=== PATIENT | female | born 1995 ===

== ENCOUNTER 2024-01-14 16:00 | Outpatient (REF) | payer SELFPAY ==
[2024-01-14 17:32] LABS: MANUAL DIFF FLAG NO
[2024-01-14 17:50] LABS: Basophils Percent Auto 0.8 % (0-2); Eosinophils Absolute Auto 0.1 X10*3/uL (0.0-0.4); Eosinophils Percent Auto 1.6 % (0-4); Hematocrit 39.6 % (37.0-47.0); Imm Gran Abs Auto 0.01 X10*3/uL (0.00-0.03); Imm Gran Pct Auto 0.2 % (0.0-0.4); Lymphocytes Absolute Auto 2.4 X10*3/uL (1.2-4.9); Lymphocytes Percent Auto 48.2 % (20-40); Mean Corpuscular HGB Conc 35.4 g/dl (31.0-35.0); Mean Corpuscular Hemoglobin 28.9 pg (27.0-33.0); Mean Corpuscular Volume 81.8 fL (80.0-98.0); Mean Platelet Volume 10.5 fL (9.4-12.3); Monocytes Absolute Auto 0.3 X10*3/uL (0.1-1.2); Monocytes Percent Auto 5.5 % (2-11); Neutrophils Absolute Auto 2.1 x10*3/uL (2.0-8.3); Neutrophils Percent Auto 43.7 % (45-73); Platelet Count 262 X10*3/uL (160-400); Red Blood Count 4.84 X10*6/uL (4.20-5.50); Red Cell Distribution Width 11.7 % (11.0-16.0); White Blood Count 4.9 X10*3/uL (4.8-10.8)
[2024-01-14 18:13] LABS: Alanine Aminotransferase 15 U/L (0-31); Albumin Level 4.6 g/dL (3.5-5.0); Alkaline Phosphatase 29 U/L (39-117); Anion Gap 14 (12-20); Aspartate Amino Transferase 15 U/L (5-31); Bilirubin Total 0.4 mg/dL (0.0-1.0); Blood Urea Nitrogen 10 mg/dL (9-16); Calcium 9.9 mg/dL (8.4-10.2); Carbon Dioxide 24 mmol/L (22-29); Chloride 101 mmol/L (96-108); Cholesterol 207 mg/dL (<200); Estimated Glomerular Filt Rate > 60; Glucose Random 215 mg/dL (60-115); HDL Cholesterol 34 mg/dL (>40); Potassium 4.2 mmol/L (3.3-5.1); Sodium 135 mmol/L (135-145); Total Protein 8.2 g/dL (6.5-8.0); Triglycerides 618 mg/dL (<150)
[2024-01-14 18:30] LABS: Thyroid Stimulating Hormone 0.62 uIU/mL (0.32-4.0)
[2024-01-15 05:19] LABS: Estimated Average Glucose 223 mg/dL; Hemoglobin A1c % 9.4 % (<6.0)
== END 2024-01-14 16:01 | disposition home or self-care (01) ==
LOC: HO.HHCL 16:00
PROVIDERS: Visit Provider Nurse Practitioner Family
DX: Z00.00 Encounter for general adult medical examination without abnormal findings (principal); R00.0 Tachycardia, unspecified
CPT/HCPCS: 36415; 80053; 80061; 83036; 84443; 85025

== ENCOUNTER 2024-02-15 18:01 | Outpatient (REF) | payer OTHER, SELFPAY ==
[2024-02-19 11:03] LABS: C. trachomatis RNA TMA NOT DETECTED (NOT DETECTED); N. gonorrhoeae RNA TMA NOT DETECTED (NOT DETECTED); Trichomonas (NAAT) NOT DETECTED (NOT DETECTED)
[2024-03-11 12:01] LABS: Thin Prep Source Cervix
[2024-03-11 12:02] LABS: Previous Biopsy Date NONE GIVEN
[2024-03-11 12:03] LABS: Clinical Information NONE GIVEN
== END 2024-02-15 18:02 | disposition home or self-care (01) ==
LOC: HO.HHCLNP 18:01
PROVIDERS: Visit Provider Nurse Practitioner Family
DX: Z12.4 Encounter for screening for malignant neoplasm of cervix (principal)
CPT/HCPCS: 36415; 87491; 87591; 87661; 88175

== ENCOUNTER 2024-02-27 12:51 | Outpatient (REF) | payer OTHER, SELFPAY ==
--- NOTE | ~2024-02-27 | US_ITS ---
EXAMINATION: US PELVIS CLINICAL INFORMATION: Dysmenorrhea, menorrhagia, last menstrual period one week ago. COMPARISON: None available. TECHNIQUE: Ultrasound of the pelvis is performed using both transabdominal and transvaginal transducers along with Doppler. Transvaginal imaging is performed due to inadequate visualization transabdominally. Limited visualization due to bowel gas and body habitus. FINDINGS: The uterus is anteverted and measures 7.7 x 3.5 x 4.5 cm. Endometrial thickness is 8 mm. A 4 mm echogenic focus within the endometrial cavity may represent a polyp. Right ovary measures 4.7 x 3.1 x 3.7 cm, volume 28.2 mL. Right ovarian 2.0 x 1.9 x 1.8 cm hypoechoic area is very difficult to characterize due to severely limited visualization and may represent a complex cyst versus solid lesion. Left ovary measures 2.4 x 1.5 x 1.0 cm, volume 1.9 mL. Left ovary is poorly visualized. US/US pelvic and transvaginal IMPRESSION: 1. Endometrial thickness is 8 mm. A 4 mm echogenic focus within the endometrial cavity may represent a polyp. 2. Right ovarian 2.0 cm hypoechoic area is very difficult to characterize due to severely limited visualization and may represent a complex cyst versus solid lesion. 3. Gynecologic consultation recommended to determine further management including possible additional imaging with MRI, biopsy, and/or follow-up ultrasound in 6-8 weeks.
== END 2024-02-27 12:52 | disposition home or self-care (01) ==
LOC: HO.US 12:51
PROVIDERS: PCP Nurse Practitioner Family; Visit Provider Nurse Practitioner Family
DX: N94.6 Dysmenorrhea, unspecified (principal); N92.0 Excessive and frequent menstruation with regular cycle
CPT/HCPCS: 76830; 76856

== ENCOUNTER 2025-04-15 11:16 | Outpatient (REF) | payer OTHER, SELFPAY ==
--- NOTE | ~2025-04-15 | US_ITS ---
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 TECHNIQUE: Transabdominal and endovaginal real-time 2D rios-scale ultrasound was performed. FINDINGS: Uterus: The uterus is normal in size, measuring 7.0 x 4.0 x 4.1 cm. Myometrium has a normal echotexture. No fibroids are identified. Endometrium: The endometrial stripe measures 14 mm in thickness. Right ovary: The right ovary measures 2.6 x 2.7 x 2.1 cm. The right ovary is normal in size and echotexture. Left ovary: The left ovary measures 4.0 x 2.1 x 3.3 cm. There is a 1. 5 x 1.2 x 1.4 cm cyst demonstrating low level internal echoes. Pelvic fluid: none. US/US pelvic and transvaginal IMPRESSION: 1.5 x 1.2 x 1.4 cm left ovarian cyst demonstrating low level internal echoes. Follow-up is recommended to document resolution. Electronically signed by: Armani Barton MD 04/15/2025 12:09 PM EDT
== END 2025-04-15 11:17 | disposition home or self-care (01) ==
LOC: HO.US 11:16
PROVIDERS: PCP Nurse Practitioner Family; Visit Provider Nurse Practitioner Family
DX: R93.89 Abnormal findings on diagnostic imaging of other specified body structures (principal)
CPT/HCPCS: 76830; 76856

== ENCOUNTER → 2025-04-15 11:18 | Outpatient (BNV) | payer OTHER, SELFPAY | PROVIDERS: PCP Nurse Practitioner Family; Visit Provider Radiology Diagnostic Radiology | DX: N83.292 Other ovarian cyst, left side (principal) | CPT/HCPCS: 76830; 76856 ==

== ENCOUNTER 2025-05-13 13:24 | Outpatient (REF) | payer OTHER, SELFPAY ==
--- OUTSIDE RECORDS SUMMARY | 2025-05-13 14:00 | XMS_ITS | Encounter Summary ---
Author Organization [employer] Address [address] [place] [address] Care Team Providers Care Strategic Planning Director Name Role Phone Chelo Jacobs KASEY Primary Care Provider [phone] Encounter Details Date Type Department Care Team ([facility] st Contact Info) Description 05/13/2025 2:00 PM EDT Office Visit [facility] OPTOMETRY [address] [place], [place] [phone] Lynda Balderas, OD [address] [place] [address] Social History Tobacco Use Types Packs/Day Years Used Date Smoking Tobacco: Never Smokeless Tobacco: Never Alcohol Use Standard Drinks/Week Comments Never 0 (1 standard drink = 0.6 oz pur e alcohol) Depression Answer Date Recorded Patient Health Questionnaire-9 Score 15 01/27/2025 Patient Health Questionnaire-9 Score 15 01/27/2025 Last PHQ-9: Questionnaire Data Not on file 0 01/27/2025 Housing Stability Answer Date Recorded What is your housing situation today? I have [place] 01/14/[address] you li ve. Do you have problems with any of the following? Pests such as bugs, ants, or mice 01/14/2024 Food Insecurity Answer Date Recorded Within the past 12 months, y ou worried that your food would run out before you got money to buy more: Never True 01/14/2024 Within the past 12 months,th e food you bought just didn't last and you didn't have enough money to get more: Never True Transportation Answer Date Recorded In the past 12 months, has l ack of transportation kept you from medical appts, meetings, work or from getting things needed for daily living? No 01/14/2024 Utilities Answer Date Recorded In the past 12 months, has t he electric, gas, oil or water company threatened to shut off services in your home? No 01/14/2024 Depression Answer Date Recorded Patient Health Questionnaire-2 Score 4 01/27/2025 Internet Access Answer Date Recorded Internet Access Q1 No 03/31/2024 Internet Access Q2 I do not want or need it 08/2023 Comments Unknown Sex and Gender Information Value Date Recorded Sex Assigned at Female 01/31/2023 12:15 PM EDT Legal Sex Female 12:13 PM EDT Gender Identity Female 01/31/2023 12:15 PM EDT Sexual Orientation Straight 01/31/2023 12 :15 PM EDT documented as of this encounter Plan of Treatment Upcoming Encounters Date Type Department Care Team (Late st Contact Info) Description 05/26/2025 11:30 AM EDT Office Visit [facility] MEDICINE [address] [place] [phone] Chelo Jacobs NP [address] [place] [address] 06/11/2025 11:00 AM EST Medication Management [facility]INE [address] [place] [phone] Monika Baird, PharmD [address] [place] [phone] documented as of this encounter Visit Diagnoses Not on filedocumented in this encounter Additional Health Concerns Assessment Noted Time PHQ-9 Depression Total Score: 15 025 1:51 PM EDT documented as of this encounter Care Teams Strategic Planning Director Relationship Specialty Start Date End Date Chelo Jacobs NP [address] [place] [address] PCP - General Family Medicine 01/17/24 documented as of this encounter
[2025-05-13 16:43] LABS: Alanine Aminotransferase 9 U/L (0-31); Albumin Level 4.7 g/dL (3.5-5.0); Alkaline Phosphatase 31 U/L (39-117); Anion Gap 12 (12-20); Aspartate Amino Transferase 17 U/L (5-31); Blood Urea Nitrogen 14 mg/dL (9-16); Calcium 9.7 mg/dL (8.4-10.2); Carbon Dioxide 23 mmol/L (22-29); Chloride 105 mmol/L (96-108); Cholesterol 163 mg/dL (<200); Estimated Glomerular Filt Rate > 60; HDL Cholesterol 25 mg/dL (>40); Potassium 3.9 mmol/L (3.3-5.1); Sodium 136 mmol/L (135-145); Total Protein 7.5 g/dL (6.5-8.0); Triglycerides 167 mg/dL (<150)
--- OUTSIDE RECORDS SUMMARY | 2025-05-13 17:06 | XMS_ITS | Clinical Summary ---
Author Organization [facility] Address [address] [address] Phone Care Team Providers Care [employer] Captain Name Role Phone ArleneChelo Shira PARKS Primary Care Provider [phone] Allergies No known active allergies Medications cyclobenzaprine (FLEXERIL) 10 MG tablet Take 10 mg by mouth 3 (three) times a day as needed. 4 Active lisinopril (PRINIVIL,ZESTR IL) 20 MG tablet Take 20 mg by mouth daily. 4 Active metoprolol succinate (TOPROL-XL) 50 MG 24 hr tablet Take 50 mg by mouth daily. 4 Active naproxen (NAPROSYN) 500 MG tablet TAKE 1 TABLET BY MOUTH TWICE DAILY WITH BREAKFAST AND WITH DINNER 4 Active norethindrone (MICRONOR) 0.35 mg tablet Take 1 tablet (0.35 mg total) by mouth daily. Micronor 1 tab po QD 84 tablet 3 4 Active Active Problems Problem Noted Date Diagnosed Date Type 2 diabetes mellitus without complication Overview (04/16/2024): Hgb A1c was 9.4 in January 2024 Was not informed that this is dx of DM Assessment & Plan (04/16/2024 12:10 PM EDT): I reviewed that this is serious elevation in A1c and indicates DM; recommend she see her PCP [facility] Dysmenorrhea 04/16/2024 Overview (04/16/2024): Advise against the combined OCP given elevated triglycerides (also had HTN, on lisinopril) Assessment & Plan (04/16/2024 1:32 PM EDT): Sent Rx for norethindrone -only OCP to use instead of the combined OCP Elevated triglycerides with high cholesterol Overview (04/16/2024): Trig 600s with min elevated cholesterol Assessment & Plan (04/16/2024 12:09 PM EDT): Advise against EE-containing OCP with this level, oral combined OCPs will further increase Triglycerides, which are sig risk factor for CVDxz in women Recommend f/u with PCP Cyst of right ovary 04/16/2024 Overview (04/16/2024): 2 cm ? Cyst or solid on outside scan January 2024 Assessment & Plan (04/16/2024 12:08 PM EDT): Recommend repeat imaging in our office, f/u therafter as indicated Social History Tobacco Use Types Packs/Day Years Used Date Smoking Tobacco: Never Smokeless Tobacco: Never Tobacco Cessation:Counseling Given: Not Answered Alcohol Use Standard Drinks/Week Comments Yes 0 (1 standard drink = 0.6 oz pur e alcohol) Education Answer Date Recorded Are you interested in more education? Not on moises e 11/25/2022 Are you concerned about learning? Not on file 11/25/2022 No 11/25/2022 No 11/25/2022 Digital Access Answer Date Recorded No 12/26/2022 No 12/26/2022 Reliable internet access at home? Not on file 12/26/2022 Device with a working camera? Not on file Intimate Partner Violence Answer Date R ecorded Are you denied basic needs s uch as food, clothing, or medical care? No 01/04/2024 In the past 12 months have y ou been in a relationship with a person who hurts, threatens, or tries to control you? No 01/04/2024 Are you denied basic needs s uch as food, clothing, or medical care? No 01/04/2024 In the past 12 months have y ou been in a relationship with a person who hurts, threatens, or tries to control you? No 01/04/2024 Comments No Sex and Gender Information Value Date Recorded Sex Assigned at Female 01/04/2024 10:51 PM EDT Legal Sex Female 2:19 PM EDT Gender Identity Female 01/04/2024 10:51 PM EDT Sexual Orientation Don't know 01/04/2024 10 :51 PM EDT Last Filed Vital Signs Vital Sign Reading Time Taken Comments Blood Pressure 124/80 04/16/2024 11:18 AM EDT Pulse 98 01/05/2024 12:21 AM EDT Temperature 37 C (98.6 F) 01/04/2024 10:09 PM EDT Respiratory Rate 16 01/05/2024 12:21 AM EDT Oxygen Saturation 99% 01/05/2024 12:21 AM EDT Inhaled Oxygen Concentration - - Weight 78 kg (172 lb) 04/16/2024 11:18 AM EDT Height 162.6 cm (5' 4 ) 04/16/2024 11:18 AM EDT Body Mass Index 29.52 04/16/2024 11:18 AM EDT Plan of Treatment Health Maintenance Due Date Last Done Comments Adult Td,Tdap Booster 1995 HEMOGLOBIN A1C 1995 DEPRESSION SCREENING 2007 HEPATITIS C SCREENING 2013 HIV ONE-TIME SCREENING (18-6 5 YEARS) 2013 PNEUMOCOCCAL VACCINES (0-49 years) (1 of 2 - PCV) 2014 PAP SMEAR 2016 DIABETIC EYE EXAM 04/16/2024 URINE MICROALBUMIN/CREATININ E RATIO 04/16/2024 BLOOD PRESSURE 10/14/2024 04/16/2024 LIPID PANEL 01/13/2025 01/14/2024 INFLUENZA VACCINE (#1) 2025 COVID-19 VACCINE (1 - 2024-2 6 season) 2025 SMOKING STATUS SCREENING (On ce After 26 Yrs) Completed 04/16/2024 HEPATITIS A VACCINES Aged Out No long er eligible based on patient's age to complete this topic HIB VACCINES Aged Out No longer eligi ble based on patient's age to complete this topic MENINGOCOCCAL VACCINES (ACWY) Aged Out No longer eligible based on patient's age to complete this topic MENINGOCOCCAL VACCINES (B) Aged Out N o longer eligible based on patient's age to complete this topic Medical Devices Not on file Insurance Care Teams [employer] Relationship Specialty Start Date End Date Chelo Jacobs NP PCP - General Nurse Practitioner 03/27/24 Additional Source Comments The information contained in this document represents components of the legal health record. It is not the complete legal health record.[facility]
--- OUTSIDE RECORDS SUMMARY | 2025-05-13 17:06 | XMS_ITS | Encounter Summary ---
Author Organization [employer] Address [address] [place] [address] Care Team Providers Care Web Design Instructor Name Role Phone Chelo Jacobs NP Primary Care Provider [phone] Reason for Visit * Reason Onset Date Comments Prior Authorization 04/01/2025 PT requestin g to know the status of the trulicity injections Encounter Details Date Type Department Care Team ([facility] Contact Info) Description 04/01/2025 Telephone [facility] [address] [place], [place] [phone] Chelo Jacobs NP [address] [place], [place] [phone] Prior Authorization (PT requesting to know the status of the trulicity injections) Social History Tobacco Use Types Packs/Day Years [...] PM EDT documented as of this encounter Miscellaneous Notes * Telephone Encounter - Carlton Mann - 04/13/2025 11:14 AM EDT Tc from pt calling in regards to message prior stating she has not had medication in over 3 weeks and would like to speak to someone as soon as possible. * Telephone Encounter - Evangelina Mann - 04/09/2025 2:59 PM EDT PT requesting to know the status of the trulicity injections * Telephone Encounter - Marc Mirnada - 04/08/2025 10:56 AM EDT Tc from pt calling regarding prior message. Contact pt at [phone] * Telephone Encounter - Marc Miranda - 04/07/2025 11:44 AM EDT Tc from pt calling back regarding prior message. Pt requested to keep using the old dose until the new dose gets accepted. Contact pt at [phone] * Telephone Encounter - Bailee Amin - 04/01/2025 11:49 AM EDT Tc radha Busby at [facility] requesting a PA for Dulaglutide (Trulicity) 1.5 MG/0.5ML solution auto-injector Contact pt at [phone] documented in this encounter Plan of Treatment Upcoming Encounters Date Type Department Care Team (Late st Contact Info) Description 05/26/2025 11:30 AM EDT Office Visit [facility] MEDICINE [address] [place] [phone] Chelo Jacobs NP [address] [place] [address] 06/11/2025 11:00 AM EST Medication Management [facility] [address] [place] [address] Monika Baird, PharmD [address] [place] [address] documented as of this encounter Visit Diagnoses Not on filedocumented in this encounter Additional Health Concerns Assessment Noted Time PHQ-9 Depression Total Score: 15 01/27/2 025 1:51 PM EDT documented as of this encounter Care Teams Web Design Instructor Relationship Specialty Start Date End Date Chelo Jacobs NP [address] [place] [address] PCP - General Family Medicine 01/17/24 documented as of this encounter
--- OUTSIDE RECORDS SUMMARY | 2025-05-13 17:06 | XMS_ITS | Encounter Summary ---
Author Organization [employer] Address [address] [place] [address] Care Team Providers Care [address] Freight Name Role Phone Chelo Jacobs KASEY Primary Care Provider [phone] Encounter Details Date Type Department Care Team (Latest Contact Info) Description 05/12/2025 Travel Social History Tobacco Use Types Packs/Day Years [...] Description 05/26/2025 11:30 AM EDT Office Visit [facility] MEDICINE [address] [place] [phone] Chelo Jacobs NP [address] [place] [address] 06/11/2025 11:00 AM EST Medication Management [facility] MEDICINE [address] [place] [phone] Monika Baird, PharmD [address] [place] [address] documented as of this encounter Visit Diagnoses Not on filedocumented in this encounter Additional Health Concerns Assessment Noted Time PHQ-9 Depression Total Score: 15 025 1:51 PM EDT documented as of this encounter Care Teams [address] Freight Relationship Specialty Start Date End Date Chelo Jacobs NP [address] [place] [phone] PCP - General Family Medicine 01/17/24 documented as of this encounter
--- OUTSIDE RECORDS SUMMARY | 2025-05-13 17:06 | XMS_ITS | Clinical Summary ---
Author Organization [employer] Address [address] [facility] [address] [address] Care Team Providers Care Credit Advisor Name Role Phone ChaiChelo carrasquillo KASEY Primary Care Provider [phone] Allergies No known active allergies Medications * This document contains information received from the source organization and may not represent a complete record from that organization. cyclobenzaprine (Flexeril) 10 MG tabletIndicatio ns:Chronic thoracic back pain, unspecified back pain laterality Take 1 tablet (10 mg) by mouth if needed in the morning, at noon, and at bedtime for muscle spasms for up to 10 days. 30 tablet 01/14/20 24 Active norethindrone (Micronor) 0.35 MG tablet Take 0.35 mg by mouth Once per day. 04/16/20 24 Active TRUEplus Lancets 33G misc Use to test blood sugar 2 time(s) daily 100 each 11 05/08/20 24 Active Blood Glucose Monitoring Suppl (FreeStyle Lite) device Inject 1 each under the skin 2 times daily. Use to test blood sugar as directed 1 each 05/08/20 24 Active glucose blood (FREESTYLE LITE) test strip Use to test blood sugar 2 times daily 100 each 11 05/08/20 24 Active metFORMIN XR (Glucophage-XR) 500 MG 24 hr tabletIndicatio ns:Type 2 diabetes mellitus without complication, unspecified whether usp insulin use Take 2 tablets (1,000 mg) by mouth Once per day. TAKE 2 TABLETS BY MOUTH WITH BREAKFAST DO NOT BREAK, CRUSH, DISSOLVE OR CHEW 180 tablet 3 08/22/19 25 026 Active Dulaglutide (Trulicity) 1.5 MG/0.5ML solution auto-injectorIn dications:Type 2 diabetes mellitus with hyperglycemia, unspecified whether usp insulin use (HCC) Inject 1.5 mg under the skin 1 (one) time per week. Do not start before April 01, 2025. 2 mL 2 04/01/20 25 Active cyclobenzaprine (Flexeril) 10 MG tablet Take 1 tablet (10 mg) by mouth 3 times daily for 10 days. 30 tablet 03/24/20 25 Active lisinopril (Prinivil) 20 MG tabletIndicatio ns:Hypertension , unspecified type,Palpitatio ns TAKE 1 TABLET BY MOUTH EVERY DAY 90 tablet 3 04/24/20 25 Active metoprolol succinate XL (Toprol-XL) 50 MG 24 hr tablet TAKE 1 TABLET BY MOUTH EVERY DAY. DO NOT CRUSH OR CHEW. 90 tablet 3 04/24/20 25 Active lisinopril (Prinivil) 20 MG tabletIndicatio ns:Hypertension , unspecified type,Palpitatio ns Take 1 tablet (20 mg) by mouth Once per day. 90 tablet 3 03/24/20 24 025 Discontinued(Re order (will not trigger notification to Pharmacy)) metoprolol succinate XL (Toprol-XL) 50 MG 24 hr tablet Take 1 tablet (50 mg) by mouth Once per day. Do not crush or chew. 90 tablet 3 03/24/20 24 025 Discontinued(Re order (will not trigger notification to Pharmacy)) Active Problems Problem Noted Date Diagnosed Date Type 2 diabetes mellitus with hyperglycemia 07/2024 Assessment & Plan (04/09/2025 3:26 PM EDT): Hyperglycemia despite oral medications, initiate glp-1 Assessment & Plan (01/27/2025 1:51 PM EDT): Pt open to addition of glp-1 Initiate trulicity, referral to DNE referral to nutrition Return to clinic in 4-6 weeks Abnormal pelvic ultrasound 01/27/2025 Assessment & Plan (04/09/2025 3:26 PM EDT): Follow up ordered Assessment & Plan (01/27/2025 1:50 PM EDT): Pt requesting evaluation by [facility] window framer Will refer as it has been almost 1 year since abnormal ultrasound - urgency relayed to patient 1. Endometrial thickness is 8 mm. A 4 mm echogenic focus within the endometrial cavity may represent a polyp. 2. Right ovarian 2.0 cm hypoechoic area is very difficult to characterize due to severely limited visualization and may represent a complex cyst versus solid lesion. 3. Gynecologic consultation recommended to determine further management including possible additional imaging with MRI, biopsy, and/or follow-up ultrasound in 6-8 weeks. Dietary counseling 06/25/2024 Assessment & Plan (01/27/2025 1:35 PM EDT): Dietary Recommendations: Fruits, vegetables, whole grains, protein foods, and fat-free or low-fat dairy products are healthy choices. Eat different types of protein foods in your diet. This can include seafood, lean meats, poultry, beans, peas, lentils, nuts, seeds, soy products, and eggs. Limit foods and beverages higher in added sugars, saturated fat, and sodium. Exercise Recommendations: At least 150 minutes of moderate-intensity physical activity per week, or an equivalent combination of moderate- and vigorous-intensity activity Assessment & Plan (06/25/2024 5:58 PM EST): Encouraged minimizing processed foods and increasing whole foods particularly vegetables Exercise counseling 06/25/2024 Assessment & Plan (06/25/2024 5:58 PM EST): Encouraged daily movement, working up to 30 minutes daily Type 2 diabetes mellitus without complication Assessment & Plan (06/25/2024 5:57 PM EST): New dx, pt is motivated to modify nutrition Treatment options reviewed, pt opts for metfromin at this time Glucometer ordered Check sugars 3x weekly fasting and 1 after meals On renato Referral to DNE and nutrition Close follow up Type 2 diabetes mellitus, wi thout long-term current use of insulin 05/08/2024 Elevated triglycerides with high cholesterol Overview (09/29/2024): Trig 600s with min elevated cholesterol Hypertension 03/24/2024 Assessment & Plan (03/25/2024 7:20 PM EDT): At goal today Palpitations 03/24/2024 Cyst of right ovary 03/12/2024 Dysmenorrhea 02/15/2024 Menorrhagia with regular cycle 02/15/2024 Assessment & Plan (03/25/2024 7:21 PM EDT): Reviewed findings of ultrasound , referral already placed to cathodic protection technician, pt aware Contact information for office given Assessment & Plan (02/18/2024 9:47 AM EDT): Ultrasound ordered, Ocps rx. Follow up in 2-3 months Cervical cancer screening 02/14/2024 Assessment & Plan (02/18/2024 9:47 AM EDT): Pap and sti screen completed today. Ocps initiated Class 1 obesity 01/26/2024 Assessment & Plan (04/09/2025 3:25 PM EDT): Initiate trulicity for elevated blood sugars and associated weight. Routine adult health maintenance 01/14/2024 Assessment & Plan (01/15/2024 6:03 PM EDT): Will schedule pap and follow up in 1 month Major depressive disorder in partial remission 0 01/14/2024 Assessment & Plan (01/15/2024 6:03 PM EDT): Ibh into assess, contemplative about ssri Chronic thoracic back pain 01/14/2024 Assessment & Plan (01/15/2024 6:05 PM EDT): Referral to PT, Continue sparing usage of naproxyn with food and muscle relaxor prn for back pain flares Primary hypertension 01/14/2024 Assessment & Plan (01/15/2024 6:02 PM EDT): Continue current regimen of lisinopril of 20 mg Tachycardia 01/14/2024 Assessment & Plan (01/15/2024 6:03 PM EDT): Continue metoprolol Periodontal disease 02/05/2023 Encounters Date Type Department Care Team Description 05/13/2025 2:00 PM EDT Office Visit [facility] [address] [facility] [place] [address] Lynda Balderas, OD 05/13/2025 Travel 05/12/2025 Travel 04/30/[address] [facility] [address] [facility] [place] [address] Chelo Jacobs NP 04/23/[address] [facility] [address] [facility] [place] [address] Chelo Jacobs NP Hypertension, unspecified type; Palpitations; Type 2 diabetes mellitus without complication, unspecified whether moth exterminator insulin use (CMS/[facility]) 04/22/[address] [facility] [address] [facility] [place] [address] Chelo Jacobs NP Type 2 diabetes mellitus with hyperglycemia, unspecified whether usp insulin use (CMS/[facility]) (Primary Dx) 04/14/[address] [facility] [address] [facility] [place] [address] Chelo Jacobs NP Prior Authorization 04/13/[address] [facility] [address] [place] [address] Chelo Jacobs NP Prior Authorization 04/01/[address] [facility] [address] [place] [address] Chelo Jacobs NP Prior Authorization (PT requesting to know the status of the trulicity injections) 04/01/[address] [facility] [address] [facility] [place] [address] Chelo Jacobs NP Type 2 diabetes mellitus with hyperglycemia, unspecified whether usp insulin use (CMS/HCC) 03/24/2025 11:30 AM EDT Office Visit [facility] [address] [facility] [place] [address] Chelo Jacobs NP Type 2 diabetes mellitus with hyperglycemia, unspecified whether usp insulin use (CMS/[facility]) (Primary Dx); Type 2 diabetes mellitus without complication, without long-term current use of insulin (CMS/[facility]); Abnormal pelvic ultrasound; Chronic thoracic back pain, unspecified back pain laterality; Obesity (BMI 30-39.9); Class 1 obesity 03/24/2025 Travel 03/19/[address] [facility] [address] [place] [address] Chelo Jacobs NP Referral 03/17/2025 Travel 03/02/[address] [facility] [address] [place] [address] Chelo Jacobs NP Type 2 diabetes mellitus with hyperglycemia, unspecified whether moth exterminator insulin use (CMS/HCC) 02/23/[address] [facility] [address] [place] [address] Ivanna Novoa [place] Results from Last 3 Months Family History Medical History Relation Name Comments Diabetes type II Mother htn Mother Relation Name Status Comments Mother Social History Tobacco Use Types Packs/Day Years Used Date Smoking Tobacco: Never Smokeless Tobacco: Never Tobacco Cessation:Counseling Given: Not Answered Alcohol Use Standard Drinks/Week Comments Never 0 [...] t he electric, gas, oil or water [employer] threatened to shut off services in your home? No 01/14/2024 Depression Answer Date Recorded Patient Health Questionnaire-2 Score 4 01/27/2025 Internet Access Answer Date Recorded Internet Access Q1 No 03/31/2024 Internet Access Q2 I do not want or need it 08/2023 Comments Unknown Intention Date Recorded Not sure of desire to become (f inding) 01/27/2025 Sex and Gender Information Value Date Recorded Sex Assigned at Female 01/31/2023 12:15 PM EDT Legal Sex Female 12:13 PM EDT Gender Identity Female 01/31/2023 12:15 PM EDT Sexual Orientation Straight 01/31/2023 12 :15 PM EDT Last Filed Vital Signs Vital Sign Reading Time Taken Comments Blood Pressure 120/82 03/24/2025 11:25 AM EDT Pulse 95 03/24/2025 11:25 AM EDT Temperature 36.3 C (97.3 F) 03/24/2025 11:25 AM EDT Respiratory Rate 24 03/24/2025 11:2 5 AM EDT Oxygen Saturation 97% 03/24/2025 11: 25 AM EDT Inhaled Oxygen Concentration - - Weight 74.8 kg (164 lb 12.8 oz) 025 11:25 AM EDT Height 157.5 cm (5' 2 ) 03/24/2025 11:2 5 AM EDT Body Mass Index 30.14 03/24/2025 11:25 AM EDT Plan of Treatment Upcoming Encounters Date Type Department Care Team (Late st Contact Info) Description 05/26/2025 11:30 AM EDT Office Visit [facility] [address] [place] [phone] Chelo Jacobs, KASEY [address] [place] [address] 06/11/2025 11:00 AM EST Medication Management [facility] [address] [place] [phone] Monika Baird, YajairaD [address] [place] [address] Health Maintenance Due Date Last Done Comments HIV Screening 1995 Diabetes: Foot Exam 2005 HPV Vaccines (1 - 3-dose series) 2010 Hepatitis C Screening 2013 DTaP/Tdap/Td Vaccines (1 - Tdap) 2014 Diabetes: Urine Protein Screening 2014 Hepatitis B Vaccines (1 of 3 - 19+ 3-dose series) 2014 Pneumococcal Vaccine: Pediatrics (0 to 5 Years) and At-Risk Patients (6 to 49) Years (1 of 2 - PCV) 2014 Dental Oral Exam 08/18/2023 02/14/2023 Dental Prophylaxis 08/18/2023 02/14/2023 Dental X-Ray: Bitewings 03/08/2024 03/07/2023, 02/14 SDOH Screening 01/13/2025 01/14/2024 COVID-19 Vaccine ( - season) 2025 Influenza Vaccine (#1) 2025 Depression Monitoring 07/30/2025 01/27/2025, 025 Diabetes: Hemoglobin A1C 08/13/2025 025, 01/27/2025, 06/04/2024, Additional history exists Alcohol/Substance Use Screening 01/27/2026 01/27/2025 Family Planning (PISQ) 01/27/2026 01/27/2025 Dental X-Ray: Full Mouth 02/06/2026 02/05/2023 Disability Screening 03/17/2026 03/17/2025 Lipid Panel 05/13/2026 05/13/2025, 01/14/2024 Tobacco Screening 05/13/2026 05/13/2025 Cervical Cancer Screening 02/14/2027 HPV/Cotest 02/14/2027 Pap Smear 02/14/2027 02/15/2024 Eye Exam 05/13/2027 05/13/2025, 04/29, 05/13/2025, Additional history exists Zoster Vaccines (1 of 2) 2045 RSV Patients and Patients Aged 60 years or older (1 - 1-dose 75+ series) 2070 HIB Vaccines Aged Out No longer eligi ble based on patient's age to complete this topic Hepatitis A Vaccines Aged Out No long er eligible based on patient's age to complete this topic IPV Vaccines Aged Out No longer eligi ble based on patient's age to complete this topic Meningococcal B Vaccine Aged Out No l onger eligible based on patient's age to complete this topic Meningococcal Vaccine Aged Out No ana laura esdras eligible based on patient's age to complete this topic RSV under 20 months Aged Out No longe r eligible based on patient's age to complete this topic Rotavirus Vaccines Aged Out No longer eligible based on patient's age to complete this topic Procedures Procedure Name Priority Date/Time Associated Diagnosis Comments HEMOGLOBIN A1C Routine 05/13/2025 1:31 PM EDT Type 2 diabetes mellitus with hyperglycemia, unspecified whether usp insulin use (HCC) COMPREHENSIVE METABOLIC PANEL Routine 05/13/2025 1:31 PM EDT Type 2 diabetes mellitus with hyperglycemia, unspecified whether usp insulin use (HCC) LIPID PANEL, STANDARD Routine 05/13/2025 1:31 PM EDT Type 2 diabetes mellitus with hyperglycemia, unspecified whether usp insulin use (HCC) US PELVIS TRANSVAGINAL Routine 04/15/2025 11:27 AM EDT Abnormal pelvic ultrasound POCT GLUCOSE Routine 03/24/2025 11:27 AM EDT Type 2 diabetes mellitus with hyperglycemia, unspecified whether moth exterminator insulin use (CMS/HCC) THINPREP IMAGING PAP WITH REFLEX TO HPV MRNA E6/E7 Routine 02/15/2024 12:00 AM EDT BITEWING - SINGLE RADIOGRAPHIC IMAGE Routine 03/07/2023 3:00 PM EDT Acute localized periodontitis with moderate loss of periodontal ligament attachment PROPHYLAXIS - ADULT Routine 02/14/2023 1 1:00 AM EDT Periodontal disease Encounter for dental examination Dental caries Dental calculus PERIODIC ORAL EVALUATION - ESTABLISHED PATIENT Routine 02/14/2023 11:00 AM EDT Periodontal disease Encounter for dental examination Dental caries Dental calculus PANORAMIC RADIOGRAPHIC IMAGE Routine 02/05/2023 1:15 PM EDT from Last 3 Months or Most Recently Relevant to Health Maintenance Results * (ABNORMAL) Hemoglobin A1c (05/13/2025 1:31 PM EDT) Hemoglobin A1c 6.1(H) <6.0 % [facility] Comment:Hemoglobin A1C Refer ence Range Adults: 4.8 - 6.0 % Non diabetic: < 6.0 % Goal: < 7.0 %Additional Action Suggested: > 8.0 %Note: Hemoglobin A1c results are invalid for patients with abnormal amounts of HbF. Blood transfusions may impact the HbA1c concentration in the patient sample. Estimated Average Glucose 128 mg/dL [facility] Comment:eAG = Estimated ave rage glucose which is %A1C expressed asaverage glucose, using the formula of the Z0A-EwiunhaWekbnzs Glucose study (ADAG), Diabetes Care, Vol.31,#8,Feb. 2007 Blood Venous blood specimen / Unknown 05/13/2025 1:31 PM EDT 05/13/2025 4:05 PM EDT us Chelo Jacobs VALIDATION CONSULTANT LAB BLOOD ORDERABLES Final Resul t [facility] [address] [place] [phone] * (ABNORMAL) Lipid Panel, Standard (05/13/2025 1:31 PM EDT) Triglycerides 167(H) <150 mg/dL [facility] Comment:Desirable Triglyceri de: less than 150 mg/dLBorderline High Triglyceride 150-199 mg/dLHigh Triglyceride: 200-499 mg/dLVery High Triglyceride: greater than or equal to 5OO mg/dL Cholesterol 163 <200 mg/dL [facility] Comment:Desirable Cholestero l: less than 200 mg/dLBorderline High Cholesterol: 200-239 mg/dLHigh Cholesterol: greater than 239 mg/dL LDL Cholesterol Calculated 105(H) <100 mg/dL [facility] Comment:Desirable LDL: less than 100 mg/dLNear Optimal/Above Optimal LDL: 110- 129 mg/dLBorderline High LDL: 130-159 mg/dLHigh LDL: 160-189 mg/dLVery High LDL: greater than or equal to 190 mg/dL HDL Cholesterol 25(L) >40 mg/dL [facility] Comment:Desirable HDL: great er than 40 mg/dL Note: This HDL assay may give artificially low results in patients with liver disease. Blood Venous blood specimen / Unknown 05/13/2025 1:31 PM EDT 05/13/2025 3:50 PM EDT us Chelo Jacobs VALIDATION CONSULTANT LAB BLOOD ORDERABLES Final Resul t [facility] [address] [place] [phone] * (ABNORMAL) Comprehensive Metabolic Panel (05/13/2025 1:31 PM EDT) Sodium 136 135 - 145 mmol/L [facility] Potassium 3.9 3.3 - 5.1 mmol/L [facility] Chloride 105 96 - 108 mmol/L [facility] Carbon Dioxide 23 22 - 29 mmol/L [facility] Anion Gap 12 12 - 20 [facility] Urea Nitrogen (BUN) 14 9 - 16 mg/dL [facility] Creatinine, Serum 0.62 0.5 - 1.4 mg/dL [facility] Estimated Glomerular Filt Rate >60 [facility] Comment:Chronic Kidney Disea se: Estimated GFR < 60 mL/min/1.18s7Hynqox Kidney Disease: Estimated GFR < 15 mL/min/1.73m2 Glucose 118(H) 60 - 115 mg/dL [facility] Calcium 9.7 8.4 - 10.2 mg/dL [facility] Bilirubin, Total 0.6 0.0 - 1.0 mg/dL [facility] Aspartate Amino Transferase 17 5 - 31 U/L [facility] Alanine Aminotransferase 9 0 - 31 U/L [facility] Total Protein 7.5 6.5 - 8.0 g/dL [facility] Albumin Level 4.7 3.5 - 5.0 g/dL [facility] Alkaline Phosphatase 31(L) 39 - 117 U/L [facility] Blood Venous blood specimen / Unknown 05/13/2025 1:31 PM EDT 05/13/2025 3:50 PM EDT us Chelo Jacobs NP LAB BLOOD ORDERABLES Final Resul t [facility] [address] [place] [phone] * US Pelvis Transvaginal (04/15/2025 11:27 AM EDT) Anatomical Region Laterality Modality Pelvis Ultrasound 04/15/2025 11:2 7 AM EDT Narrative 04/15/2025 12:12 PM EDT [address] [address] Ultrasound Report Signed Patient: Mary Driscoll Diamante#: [id number] : 1995 Acct:[id number] Age/Sex: 29 / F ADM Date: 04/15/25 Loc: .US Attending Dr: Chelo Jacobs NP Ordering Physician: Chelo Jacobs NP Date of Service: 04/15/25 Procedure(s): US pelvic and transvaginal Accession Number(s): [id number] cc: Chelo Jacobs NP Reason for Exam: pt with hx abnormal ultrasound, has not establsihed iw APPEALS SPECIALIST, repeat us EXAMINATION: US PELVIS TRANSABDOMINAL AND TRANSVAGINAL HISTORY: pt with hx abnormal ultrasound, has not established with APPEALS SPECIALIST, repeat us COMPARISON: Comparison is made with the prior examination dated 02/27/2024. TECHNIQUE: Transabdominal and endovaginal real-time 2D rios-scale ultrasound was performed. FINDINGS: Uterus: The uterus is normal in size, measuring 7.0 x 4.0 x 4.1 cm. Myometrium has a normal echotexture. No fibroids are identified. Endometrium: The endometrial stripe measures 14 mm in thickness. Right ovary: The right ovary measures 2.6 x 2.7 x 2.1 cm. The right ovary is normal in size and echotexture. Left ovary: The left ovary measures 4.0 x 2.1 x 3.3 cm. There is a 1. 5 x 1.2 x 1.4 cm cyst demonstrating low level internal echoes. Pelvic fluid: none. US/US pelvic and transvaginal IMPRESSION: 1.5 x 1.2 x 1.4 cm left ovarian cyst demonstrating low level internal echoes. Follow-up is recommended to document resolution. Electronically signed by: Armani Barton MD 04/15/2025 12:09 PM EDT RP Dictated By: Armani Barton MD Signed By: <Electronically signed by Armani Barton MD in OV> 04/15/25 1209 DD/ 1127 TD/TT: 04/15/25 1141 Project Safety Manager: Procedure Note Donotuseinterpreter, Image - 04/15/2025 [place] [address] Ultrasound Report Signed Patient: Grzegorz Driscoll R#: [id number] : 1995Acct:[id number] Age/Sex: 29 FADM Date: 04/15/25 Loc: .US Attending Dr: Chelo Jacobs NP Ordering Physician: Chelo Jacobs NP Date of Service: 04/15/25 Procedure(s): US pelvic and transvaginal Accession Number(s): [id number] cc: Chelo Jacobs NP Reason for Exam: pt with hx abnormal ultrasound, has not establsihed iwthGYN, repeat us EXAMINATION: US PELVIS TRANSABDOMINAL AND TRANSVAGINAL HISTORY: pt with hx abnormal ultrasound, has not established with APPEALS SPECIALIST, repeat us COMPARISON: Comparison is made with the prior examination dated 02/27/2024. TECHNIQUE: Transabdominal and endovaginal real-time 2D rios-scale ultrasound was performed. FINDINGS: Uterus: The uterus is normal in size, measuring 7.0 x 4.0 x 4.1 cm. Myometrium has a normal echotexture. No fibroids are identified. Endometrium: The endometrial stripe measures 14 mm in thickness. Right ovary: The right ovary measures 2.6 x 2.7 x 2.1 cm. The right ovary is normal in size and echotexture. Left ovary: The left ovary measures 4.0 x 2.1 x 3.3 cm. There is a 1. 5 x 1.2 x 1.4 cm cyst demonstrating low level internal echoes. Pelvic fluid: none. US/US pelvic and transvaginal IMPRESSION: 1.5 x 1.2 x 1.4 cm left ovarian cyst demonstrating low level internal echoes. Follow-up is recommended to document resolution. Electronically signed by: Armani Barton MD 04/15/2025 12:09 PM EDT RP Dictated By: Armani Barton MD Signed By: <Electronically signed by Armani Barton MD in OV> 04/15/25 1209 DD/ 1127 TD/TT: 04/15/25 1141 Project Safety Manager: us Chelo Jacobs NP IMG US PROCEDURES Edited Result - Final * POCT Glucose (03/24/2025 11:27 AM EDT) Glucose Blood, POC 132 60 - 200 mg/dL QC Media Lot # [id number] Lot# Expiration Date Blood Capillary blood specimen / Unknown 03/24/2025 11:27 AM EDT us Chelo Jacobs NP POINT OF CARE TEST ENTER/EDIT OR DERABLES Final Result * ThinPrep Imaging Pap with Reflex to HPV mRNA E6/E7 (02/15/2024 12:00 AM EDT) HPV nRNA E6/E7 [facility] SOURCE: Cervix [facility] Report Status: [facility] Clinical Information: NONE GIVEN [facility] LMP: 02/12/24 [facility] Prev. PAP: NONE GIVEN [facility] Prev. BX: NONE GIVEN [facility] Statement Of Adequacy: SEE NOTE [facility] Comment:Satisfactory for wilfrido winston.Endocervical/transformation zone componentpresent. General Categorization: [facility] Interpretation/Result: SEE NOTE [facility] Comment:Cytology Results: Ne gative for intraepitheliallesion or malignancy. Cytology Comment SEE NOTE [facility] Comment:This case could not be evaluated with computerassisted technology. The slide was manuallyscreened according to routine procedures. [employer] Department Supervisor: SEE NOTE [facility] Comment:ALS, CT(ASCP)CT scre ening location: [place] [address] Review [employer] Department Supervisor: [facility] Pathologist [facility] PAP Infection [facility] See Note SEE NOTE [facility] Comment:EXPLANATORY NOTE:The Pap is a screening test for cervical cancer. It isnot a diagnostic test and is subject to false negativeand false positive results. It is most reliable when asatisfactory sample, regularly obtained, is submittedwith relevant clinical findings and history, and whenthe Pap result is evaluated along with historic andcurrent clinical information. 02/15/2024 02/15/2024 Narrative [facility] - 03/11/2024 12:05 PM EDT SEE SCANNED RESULTS IN EMR us Chelo Jaocbs NP LAB PATHOLOGY ORDERABLES Final R esult [facility] [address] [place] [phone] from Last 3 Months or Most Recently Relevant to Health Maintenance [place] [address] * Guarantor: Mary Driscoll Account Type Relation to Patient Date of Phone Billing Address Dental Self [address] [place] [address] DENTAL - HSN PARTIAL (MEDICAID) Care Teams Credit Advisor Relationship Specialty Start Date End Date Chelo Jacobs NP [address] [place] [address] PCP - General Family Medicine 01/17/24
--- OUTSIDE RECORDS SUMMARY | 2025-05-13 17:06 | XMS_ITS | Encounter Summary ---
Author Organization [employer] Address [address] [facility] 7t [place] [address] Care Team Providers Care Administrative Nursing Supervisor Name Role Phone Chelo Jacobs NP Primary Care Provider [phone] Reason for Visit * Reason Onset Date Comments Med Refill 04/01/2025 Encounter Details Date Type Department Care Team ([facility] st Contact Info) Description 04/01/2025 Refill [facility] [address] [place], [place] [phone] Chelo Jacobs NP [address] [place], [place] [phone] Type 2 diabetes mellitus with hyperglycemia, unspecified whether intermediate school teacher insulin use ([facility]) Social History Tobacco Use Types Packs/Day Years [...] Description 05/26/2025 11:30 AM EDT Office Visit [facility] [address] [place] [address] Chelo Jacobs NP [address] [place] [address] 06/11/2025 11:00 AM EST Medication Management [facility] [address] [place] [address] Monika Baird, PharmD [address] [place] [address] documented as of this encounter Visit Diagnoses Diagnosis Type 2 diabetes mellitus with hyperglycemia, unspecified whether intermediate school teacher insulin use (HCC) documented in this encounter Additional Health Concerns Assessment Noted Time PHQ-9 Depression Total Score: 15 025 1:51 PM EDT documented as of this encounter Care Teams Administrative Nursing Supervisor Relationship Specialty Start Date End Date Chelo Jacobs NP [address] [place] [address] PCP - General Family Medicine 01/17/24 documented as of this encounter
--- OUTSIDE RECORDS SUMMARY | 2025-05-13 17:06 | XMS_ITS | Encounter Summary ---
Author Organization [employer] Address [address] [facility] [address] 7[address] [place] [address] Care Team Providers Care Jumpbasting Armhole Baster Name Role Phone Chelo Jacobs KASEY Primary Care Provider [phone] Encounter Details Date Type Department Care Team (Latest Contact Info) Description 05/13/2025 Travel Social History Tobacco Use Types Packs/Day [...] Description 05/26/2025 11:30 AM EDT Office Visit [facility] MEDICINE [address] [place] [address] Chelo Jacobs NP [address] [place] [address] 06/11/2025 11:00 AM EST Medication Management [facility] MED[facility]INE [address] [place] [address] Monika Baird, PharmD 230 [place] [address] documented as of this encounter Visit Diagnoses Not on filedocumented in this encounter Additional Health Concerns Assessment Noted Time PHQ-9 Depression Total Score: 15 025 1:51 PM EDT documented as of this encounter Care Teams Jumpbasting Armhole Baster Relationship Specialty Start Date End Date Chelo Jacobs NP [address] [place] [address] PCP - General Family Medicine 01/17/24 documented as of this encounter
--- OUTSIDE RECORDS SUMMARY | 2025-05-13 17:06 | XMS_ITS | Encounter Summary ---
Author Organization [employer] Address [address] [facility] 7t [place] [address] Care Team Providers Care Radio Station Audio Engineer Name Role Phone Chelo Jacobs NP Primary Care Provider [phone] Reason for Visit * Reason Onset Date Comments Med Refill 08/21/2024 Encounter Details Date Type Department Care Team ([facility] st Contact Info) Description 08/21/2024 Refill [facility] MEDICINE [address] [place], [place] [phone] Chelo Jacobs NP [address] [place], [place] [phone] Type 2 diabetes mellitus without complication, unspecified whether residential insulin use ([facility]) Social History Tobacco Use Types Packs/Day Years Used Date Smoking Tobacco: Never Smokeless Tobacco: Never Alcohol Use Standard Drinks/Week Comments Never 0 (1 standard drink = 0.6 oz pur e alcohol) Depression Answer Date Recorded Patient Health Questionnaire-9 Score 8 01/14/2024 Patient Health Questionnaire-9 Score 8 01/14/2024 Last PHQ-9: Questionnaire Data Not on file 0 01/14/2024 Housing Stability Answer Date Recorded What is [...] Answer Date Recorded Patient Health Questionnaire-2 Score 3 01/14/2024 Internet Access Answer Date Recorded Internet Access [...] Description 05/26/2025 11:30 AM EDT Office Visit [facility] MEDICINE [address] [place] [phone] Chelo Jacobs NP [address] [place] [address] 06/11/2025 11:00 AM EST Medication Management [facility] MED[facility]INE [address] [place] [address] Monika Baird, PharmD [address] [place] [address] documented as of this encounter Visit Diagnoses Diagnosis Type 2 diabetes mellitus without complication, unspecified whether residential insulin use documented in this encounter Additional Health Concerns Assessment Noted Time PHQ-9 Depression Total Score: 8 01/14/20 2:00 PM EDT documented as of this encounter Care Teams Radio Station Audio Engineer Relationship Specialty Start Date End Date Chelo Jacobs NP [address] [place] [address] PCP - General Family Medicine 01/17/24 documented as of this encounter
== END 2025-05-13 13:25 | disposition home or self-care (01) ==
LOC: HO.HHCL 13:24
PROVIDERS: PCP Nurse Practitioner Family; Visit Provider Nurse Practitioner Family
DX: E11.65 Type 2 diabetes mellitus with hyperglycemia (principal); Z13.6 Encounter for screening for cardiovascular disorders
CPT/HCPCS: 36415; 80053; 80061; 83036

== ENCOUNTER 2025-06-03 13:17 | Outpatient (REF) | payer OTHER, SELFPAY ==
--- NOTE | ~2025-06-03 | XR_ITS ---
EXAMINATION: XR LUMBOSACRAL SPINE WITH OBLIQUES CLINICAL INFORMATION: focal back pain at base of thoracic region , heavy lifting COMPARISON: None available. TECHNIQUE: AP, both oblique, and lateral views of the lumbar spine. Lateral view of the lumbosacral junction. FINDINGS: The vertebral bodies and posterior elements are normal. The disc spaces are preserved and the vertebral alignment is normal. The paraspinal soft tissues are normal. XR/XR lumbar spine 4V min IMPRESSION: Unremarkable examination. Electronically signed by: Mile Cid MD 06/03/2025 02:58 PM [facility]
--- NOTE | ~2025-06-03 | XR_ITS ---
EXAMINATION: XR THORACIC SPINE CLINICAL INFORMATION: pain after lifting at base of thoracic spine COMPARISON: None available. TECHNIQUE: 2 views of the thoracic spine were obtained. FINDINGS: There is no fracture or bone destruction seen and the vertebral alignment is normal. There is no disc space narrowing. There is no abnormality of the paraspinal soft tissues. XR/XR thoracic spine 3V IMPRESSION: Unremarkable examination. Electronically signed by: Mile Cid MD 06/03/2025 02:57 PM [facility]
--- OUTSIDE RECORDS SUMMARY | 2025-06-03 16:07 | XMS_ITS | Encounter Summary ---
Author Organization [employer] Address [address] [facility] 7t [place] [address] Care Team Providers Care Project Management Professional Name Role Phone Chelo Jacobs NP Primary Care Provider [phone] Reason for Visit * Reason Onset Date Comments Med Refill 08/21/2024 Encounter Details Date Type Department Care Team ([facility] st Contact Info) Description 08/21/2024 Refill [facility] MED[facility]INE [address] [place], [place] [phone] Chelo Jacobs NP [address] [place], [place] [phone] Type 2 diabetes mellitus without complication, unspecified whether intermediate insulin use ([facility]) Social History Tobacco Use Types Packs/Day [...] Care Team (Late st Contact Info) Description 06/11/2025 11:00 AM EST Medication Management [address] [address] Monika Baird, PharmD [address] [place] [address] 08/12/2025 9:30 AM EST Office Visit [address] [address] Chelo Jacobs NP [address] [place] [address] documented as of this encounter Visit Diagnoses Diagnosis Type 2 diabetes mellitus without complication, unspecified whether intermediate insulin use documented in this encounter Additional Health Concerns Assessment Noted Time PHQ-9 Depression Total Score: 8 01/14/20 2:00 PM EDT documented as of this encounter Care Teams Project Management Professional Relationship Specialty Start Date End Date Chelo Jacobs NP [address] [place] [address] PCP - General Family Medicine 01/17/24 documented as of this encounter
--- OUTSIDE RECORDS SUMMARY | 2025-06-03 16:07 | XMS_ITS | Encounter Summary ---
Author Organization [employer] Address [address] [facility] 7t [place] [address] Care Team Providers Care Outside Sales Executive Name Role Phone Chelo Jacobs NP Primary Care Provider [phone] Reason for Visit * Reason Onset Date Comments Prior Authorization 04/01/2025 PT requestin g to know the status of the trulicity injections Encounter Details Date Type Department Care Team ([facility] Contact Info) Description 04/01/2025 Telephone [facility] MEDICINE [address] [place], [place] [phone] Chelo Jacobs NP [address] [place], [place] [phone] Prior Authorization (PT requesting to know the [...] trulicity injections * Telephone Encounter - Marc Miranda - 04/08/2025 10:56 AM EDT Tc from pt calling regarding prior message. Contact pt at [phone] * Telephone Encounter - Marc Miranda - 04/07/2025 11:44 AM EDT Tc from pt calling back regarding prior message. Pt requested to keep using the old dose until the new dose gets accepted. Contact pt at [phone] * Telephone Encounter - Bailee Amin - 04/01/2025 11:49 AM EDT Tc radha Busby at [facility] requesting a PA for Dulaglutide (Trulicity) 1.5 MG/0.5ML solution auto-injector Contact pt at [phone] documented in this encounter Plan of Treatment Upcoming Encounters Date Type Department Care Team (Late st Contact Info) Description 06/11/2025 11:00 AM EST Medication Management [address] [address] Monika Baird, YajairaD [address] [place] [address] 08/12/2025 9:30 AM EST Office Visit [facility] MEDICINE [address] [place] [address] Chelo Jacobs NP [address] [place] [address] documented as of this encounter Visit Diagnoses Not on filedocumented in this encounter Additional Health Concerns Assessment Noted Time PHQ-9 Depression Total Score: 15 01/27/ 025 1:51 PM EDT documented as of this encounter Care Teams Outside Sales Executive Relationship Specialty Start Date End Date Chelo Jacobs NP [address] [place] [address] PCP - General Family Medicine 01/17/24 documented as of this encounter
--- OUTSIDE RECORDS SUMMARY | 2025-06-03 16:07 | XMS_ITS | Clinical Summary ---
Author Organization [employer] Address [address] [place] [address] Care Team Providers Care Senior Resident Care Director Name Role Phone ChaiChelo carrasquillo KASEY Primary Care Provider [phone] Allergies No known active allergies Medications * [...] 2 diabetes mellitus without complication, unspecified whether snf insulin use Take 2 tablets (1,000 mg) by mouth Once per day. TAKE 2 TABLETS BY MOUTH WITH BREAKFAST DO NOT BREAK, CRUSH, DISSOLVE OR CHEW 180 tablet 3 08/22/19 25 026 Active cyclobenzaprine (Flexeril) 10 MG tablet Take [...] CHEW. 90 tablet 3 04/24/20 25 Active Dulaglutide (Trulicity) 3 MG/0.5ML solution auto-injectorIn dications:Type 2 diabetes mellitus with hyperglycemia, unspecified whether supervisor of way insulin use (HCC) Inject 3 mg under the skin 1 (one) time per week. 2 mL 1 05/26/20 25 Active Dulaglutide (Trulicity) 1.5 MG/0.5ML solution auto-injectorIn dications:Type 2 diabetes mellitus with hyperglycemia, unspecified whether snf insulin use (HCC) Inject 1.5 mg under the skin 1 (one) time per week. Do not start before April 01, 2025. 2 mL 2 04/01/20 25 025 Discontinued Active Problems Problem Noted Date Diagnosed Date Pelvic cyst in female 05/26/2025 Assessment & Plan (05/26/2025 11:46 AM EDT): Orders: Us Pelvis complete; Future US Pelvis Transvaginal; Future Chronic bilateral low back pain without sciatica 05/26/2025 Assessment & Plan (05/26/2025 11:46 AM EDT): Orders: XR Lumbar Spine Complete 4+ Views; Future XR Thoracic Spine 3 Views; Future Referral to Chiropractic; Future Type 2 diabetes mellitus with hyperglycemia 07/2024 Assessment & Plan (05/26/2025 11:46 AM EDT): Orders: Dulaglutide (Trulicity) 3 MG/0.5ML solution auto-injector; Inject 3 mg under the skin 1 (one) time per week. Assessment & Plan (04/09/2025 3:26 PM EDT): [...] 1:50 PM EDT): Pt requesting evaluation by [facility] rope maker Will refer as it has been almost [...] to 30 minutes daily Type 2 diabetes mellitus, wi thout long-term [...] of ultrasound , referral already placed to medical librarian, pt aware Contact information for office given [...] PM EDT): Continue metoprolol Periodontal disease 02/05/2023 Resolved Problems Problem Noted Date Diagnosed Date Resolved Date Type 2 diabetes mellitus without complication 06/04/20 24 05/14/2025 Assessment & Plan (06/25/2024 5:57 PM EST): New dx, pt is motivated to modify nutrition Treatment options reviewed, pt opts for metfromin at this time Glucometer ordered Check sugars 3x weekly fasting and 1 after meals On renato Referral to DNE and nutrition Close follow up Encounters Date Type Department Care Team Description 05/29/2025 Telephone [facility] [address] [place] [address] Ivanna Novoa MA jan recalls 05/26/2025 11:30 AM EDT Office Visit [facility] [address] [place] [address] Chelo Jacobs NP Pelvic cyst in female (Primary Dx); Type 2 diabetes mellitus with hyperglycemia, unspecified whether supervisor of way insulin use (HCC); Chronic bilateral low back pain without sciatica; Healthcare maintenance 05/26/2025 Travel 05/25/2025 Telephone [facility] [address] [place] [address] Chelo Jacobs NP Chart Prep 05/19/2025 Travel 05/13/2025 2:00 PM EDT Office Visit [facility] [address] [place] [address] Lynda Balderas, OD Type 2 diabetes mellitus with both eyes affected by moderate nonproliferative retinopathy without macular edema, without long-term current use of insulin (HCC) (Primary Dx); Myopia, bilateral 05/13/2025 Travel 05/12/2025 Travel 04/30/2025 Telephone [facility] [address] [place] [address] Chelo Jacobs NP 04/23/2025 Refill [facility] [address], [place] [phone] Chelo Jacobs NP Hypertension, unspecified type; Palpitations; Type 2 diabetes mellitus without complication, unspecified whether supervisor of way insulin use (CMS/[facility]) 04/22/2025 Orders Only [address] [address] Chelo Jacobs NP Type 2 diabetes mellitus with hyperglycemia, unspecified whether snf insulin use (CMS/[facility]) (Primary Dx) 04/14/[address] [address] Chelo Jacobs NP Prior Authorization 04/13/[address] [address] Chelo Jacobs NP Prior Authorization 04/01/[address] [address] Chelo Jacobs NP Prior Authorization (PT requesting to know the status of the trulicity injections) 04/01/[address] [address] Chelo Jacobs NP Type 2 diabetes mellitus with hyperglycemia, unspecified whether supervisor of way insulin use (CMS/[facility]) 03/24/2025 11:30 AM EDT Office Visit [address] [address] Chelo Jacobs NP Type 2 diabetes mellitus with hyperglycemia, unspecified whether snf insulin use (CMS/[facility]) (Primary Dx); Type 2 diabetes mellitus without complication, without long-term current use of insulin (CMS/[facility]); Abnormal pelvic ultrasound; Chronic thoracic back pain, unspecified back pain laterality; Obesity (BMI 30-39.9); Class 1 obesity 03/24/2025 Travel 03/19/[address] [address] Chelo Jacobs NP Referral 03/17/2025 Travel from Last 3 Months Family History Medical [...] housing situation today? I have [place] 05/26/[address] you li ve. Do you have problems with any of the following? None of the above 05/26/2025 Food Insecurity Answer Date Recorded Within the past 12 months, y ou worried that your food would run out before you got money to buy more: Never True 05/26/2025 Within the past 12 months,th e food you bought just didn't last and you didn't have enough money to get more: Never True Transportation Answer Date Recorded In the past 12 months, has l ack of transportation kept you from medical appts, meetings, work or from getting things needed for daily living? No 05/26/2025 Utilities Answer Date Recorded In the past 12 months, has t he electric, gas, oil or water company threatened to shut off services in your home? No 05/26/2025 Depression Answer Date Recorded Patient Health Questionnaire-2 Score 4 01/27/2025 Internet Access Answer Date Recorded Internet Access Q1 Yes 05/26/2025 Internet Access Q2 Not on file 05/26/2025 Comments Unknown Intention Date Recorded Not sure of desire to become (f inding) 01/27/2025 Sex and Gender Information Value Date Recorded Sex Assigned at Female 01/31/2023 12:15 PM EDT Legal Sex Female 12:13 PM EDT Gender Identity Female 01/31/2023 12:15 PM EDT Sexual Orientation Straight 01/31/2023 12 :15 PM EDT Last Filed Vital Signs Vital Sign Reading Time Taken Comments Blood Pressure 120/84 05/26/2025 11:23 AM EDT Pulse 82 05/26/2025 11:23 AM EDT Temperature 36.8 C (98.2 F) 05/26/2025 11:23 AM EDT Respiratory Rate 20 05/26/2025 11:23 AM EDT Oxygen Saturation 97% 03/24/2025 11:25 AM EDT Inhaled Oxygen Concentration - - Weight 72.3 kg (159 lb 6.4 oz) 05/26/2025 11:23 AM EDT Height 157.5 cm (5' 2 ) 05/26/2025 11:23 AM EDT Body Mass Index 29.15 05/26/2025 11:23 AM EDT Plan of Treatment Upcoming Encounters Date Type Department Care Team (Late st Contact Info) Description 06/11/2025 11:00 AM EST Medication Management [facility] [address] [place] [phone] Monika Baird, PharmD [address] [place], [place] [phone] 08/12/2025 9:30 AM EST Office Visit [facility] [address] [place], [place] [phone] Chelo Jacobs NP [address] [place], [place] [phone] Health Maintenance Due Date Last Done Comments [...] 02/14/2023 Dental X-Ray: Bitewings 03/08/2024 03/07/2023, 02/14 COVID-19 Vaccine ( season) 2025 Influenza Vaccine (#1) 2025 Depression Monitoring 07/30/2025 01/27/2025, 025 Diabetes: Hemoglobin A1C 11/11/2025 025, 01/27/2025, 06/04/2024, Additional history exists Alcohol/Substance Use Screening 01/27/2026 01/27/2025 Family Planning (PISQ) 01/27/2026 01/27/2025 Dental X-Ray: Full Mouth 02/06/2026 02/05/2023 Disability Screening 03/17/2026 03/17/2025 Eye Exam 05/13/2026 05/13/2025, 04/29, 05/13/2025, Additional history exists Lipid Panel 05/13/2026 05/13/2025, 01/14/2024 SDOH Screening 05/26/2026 05/26/2025 Tobacco Screening 05/26/2026 05/26/2025 Cervical Cancer Screening 02/14/2027 HPV/Cotest 02/14/2027 Pap Smear 02/14/2027 02/15/2024 Zoster Vaccines (1 of 2) 2045 RSV [...] Procedure Name Priority Date/Time Associated Diagnosis Comments XR THORACIC SPINE 3 VIEWS Routine 06/03/2025 2:29 PM EST Chronic bilateral low back pain without sciatica XR LUMBAR SPINE COMPLETE 4+ VIEWS Routine 06/03/2025 2:28 PM EST Chronic bilateral low back pain without sciatica COLOR FUNDUS PHOTOGRAPHY - OU - BOTH EYES Routine 05/13/2025 2:00 PM EDT Type 2 diabetes mellitus with both eyes affected by moderate nonproliferative retinopathy without macular edema, without long-term current use of insulin (HCC) HEMOGLOBIN A1C Routine 05/13/2025 1:31 PM EDT Type 2 diabetes mellitus with hyperglycemia, unspecified whether snf insulin use (HCC) COMPREHENSIVE METABOLIC PANEL Routine 05/13/2025 1:31 PM EDT Type 2 diabetes mellitus with hyperglycemia, unspecified whether snf insulin use (HCC) LIPID PANEL, STANDARD Routine 05/13/2025 1:31 PM EDT Type 2 diabetes mellitus with hyperglycemia, unspecified whether supervisor of way insulin use (HCC) US PELVIS TRANSVAGINAL Routine 04/15/2025 11:27 AM EDT Abnormal pelvic ultrasound POCT GLUCOSE Routine 03/24/2025 11:27 AM EDT Type 2 diabetes mellitus with hyperglycemia, unspecified whether snf insulin use (CMS/HCC) THINPREP IMAGING PAP WITH [...] Recently Relevant to Health Maintenance Results * XR Thoracic Spine 3 Views (06/03/2025 2:29 PM EST) Anatomical Region Laterality Modality Spine, T-spine Radiographic Claudine ging 06/03/2025 2:29 PM EST Narrative 06/03/2025 2:59 PM EST [address] [address] XRay Report Signed Patient: Mary Driscoll#: [id number] : 1995 Acct:[id number] Age/Sex: 30 / F ADM Date: 06/03/25 Loc: DEANDRE Attending Dr: Chelo Jacobs SAILING INSTRUCTOR Ordering Physician: Chelo Jacobs NP Date of Service: 06/03/25 Procedure(s): XR thoracic spine 3V Accession Number(s): [id number] cc: Chelo Jacobs NP Reason for Exam: pain after lifting at base of thoracic spine EXAMINATION: XR THORACIC SPINE CLINICAL INFORMATION: pain after lifting at base of thoracic spine COMPARISON: None available. TECHNIQUE: 2 views of the thoracic spine were obtained. FINDINGS: There is no fracture or bone destruction seen and the vertebral alignment is normal. There is no disc space narrowing. There is no abnormality of the paraspinal soft tissues. XR/XR thoracic spine 3V IMPRESSION: Unremarkable examination. Electronically signed by: Mile Cid MD 06/03/2025 02:57 PM EST Dictated By: Mile Cid MD Signed By: <Electronically signed by Mile Cid MD in OV> 06/03/25 1457 DD/ 1429 TD/TT: 06/03/25 1450 Return To Factory Clerk: DEANDRE Procedure Note Donotuseinterpreter, Image - 06/03/2025 [place] [address] XRay Report Signed Patient: Grzegorz Driscoll R#: [id number] : 1995Acct:[id number] Age/Sex: 30 / FADM Date: 06/03/25 Loc: DEANDRE Attending Dr: Chelo Jacobs SAILING INSTRUCTOR Ordering Physician: Chelo Jacobs NP Date of Service: 06/03/25 Procedure(s): XR thoracic spine 3V Accession Number(s): [id number] cc: Chelo Jacobs NP Reason for Exam: pain after lifting at base of thoracic spine EXAMINATION: XR THORACIC SPINE CLINICAL INFORMATION: pain after lifting at base of thoracic spine COMPARISON: None available. TECHNIQUE: 2 views of the thoracic spine were obtained. FINDINGS: There is no fracture or bone destruction seen and the vertebral alignment is normal. There is no disc space narrowing. There is no abnormality of the paraspinal soft tissues. XR/XR thoracic spine 3V IMPRESSION: Unremarkable examination. Electronically signed by: Mile Cid MD 06/03/2025 02:57 PM EST RP Dictated By: Mile Cid MD Signed By: <Electronically signed by Mile Cid MD in OV> 06/03/25 1457 DD/ 1429 TD/TT: 06/03/25 1450 Return To Factory Clerk: DEANDRE us Chelo Jacobs SAILING INSTRUCTOR IMG XR PROCEDURES Final Result * XR Lumbar Spine Complete 4+ Views (06/03/2025 2:28 PM EST) Anatomical Region Laterality Modality Spine, L-spine Radiographic Claudine ging 06/03/2025 2:28 PM EST Narrative 06/03/2025 3:01 PM EST [place] [address] XRay Report Signed Patient: Mary Driscoll Diamante#: [id number] : 1995 Acct:[id number] Age/Sex: 30 / F ADM Date: 06/03/25 Loc: HO.CLNP Attending Dr: Chelo Jacobs NP Ordering Physician: Chelo Jacobs NP Date of Service: 06/03/25 Procedure(s): XR lumbar spine 4V min Accession Number(s): [id number] cc: Chelo Jacobs NP Reason for Exam: focal back pain at base of thoracic region , heavy lifting EXAMINATION: XR LUMBOSACRAL SPINE WITH OBLIQUES CLINICAL INFORMATION: focal back pain at base of thoracic region , heavy lifting COMPARISON: None available. TECHNIQUE: AP, both oblique, and lateral views of the lumbar spine. Lateral view of the lumbosacral junction. FINDINGS: The vertebral bodies and posterior elements are normal. The disc spaces are preserved and the vertebral alignment is normal. The paraspinal soft tissues are normal. XR/XR lumbar spine 4V min IMPRESSION: Unremarkable examination. Electronically signed by: Mile Cid MD 06/03/2025 02:58 PM EST RP Dictated By: Mile Cid MD Signed By: <Electronically signed by Mile Cid MD in OV> 06/03/251457 DD/ 27 TD/TT: 06/03/251449 Return To Factory Clerk: DEANDRE Procedure Note Donotuseinterpreter, Image - 06/03/[address] [address] XRay Report Signed Patient: Grzegorz Driscoll R#: [id number] : 1995Acct:[id number] Age/Sex: 30 FADM Date: 06/03/25 Loc: HO.CLNP Attending Dr: Chelo Jacobs NP Ordering Physician: Chelo aJcobs NP Date of Service: 06/03/25 Procedure(s): XR lumbar spine 4V min Accession Number(s): [id number] cc: Chelo Jacobs NP Reason for Exam: focal back pain at base of thoracic region , heavylifting EXAMINATION: XR LUMBOSACRAL SPINE WITH OBLIQUES CLINICAL INFORMATION: focal back pain at base of thoracic region , heavy lifting COMPARISON: None available. TECHNIQUE: AP, both oblique, and lateral views of the lumbar spine. Lateral view of the lumbosacral junction. FINDINGS: The vertebral bodies and posterior elements are normal. The disc spaces are preserved and the vertebral alignment is normal. The paraspinal soft tissues are normal. XR/XR lumbar spine 4V min IMPRESSION: Unremarkable examination. Electronically signed by: Mile Cid MD 06/03/2025 02:58 PM EST RP Dictated By: Mile Cid MD Signed By: <Electronically signed by Mile Cid MD in OV> 06/03/25 1458 DD/ 27 TD/TT: 06/03/251449 Return To Factory Clerk: DEANDRE us Chelo Jacobs SAILING INSTRUCTOR IMG XR PROCEDURES Final Result * Color Fundus Photography - OU - Both Eyes (05/13/2025 2:00 PM EDT) Narrative Lynda Balderas OD - 05/14/2025 10:42 AM EDT Images from the original result were not included. FUNDUS PHOTO INTERPRETATION Fundus Photo Interpretation Report Reliability: OD: Good quality image OS: Good quality image Test Details: OD: Clear vitreous, pink and healthy optic nerve with small cupping and distinct margins, increased venous tortuosity, scattered hemes and MAs, resolving CWS inferior. Baseline. OS: Clear vitreous, pink and healthy optic nerve with small cupping and distinct margins, increased venous tortuosity, scattered hemes and MAs, multiple CWS superior. Baseline. Plan: RTC 6 months for repeat DFE us Lynda Balderas OD OPHTH PHOTOGRAPHY Final Result * (ABNORMAL) Hemoglobin A1c (05/13/2025 1:31 PM EDT) Hemoglobin A1c 6.1(H) <6.0 % [facility] Comment:Hemoglobin A1C Refer ence Range Adults: 4.8 - 6.0 % Non diabetic: < 6.0 % Goal: < 7.0 %Additional Action Suggested: > 8.0 %Note: Hemoglobin A1c results are invalid for patients with abnormal amounts of HbF. Blood transfusions may impact the HbA1c concentration in the patient sample. Estimated Average Glucose 128 mg/dL [facility] Comment:eAG = Estimated ave rage glucose which is %A1C expressed asaverage glucose, using the formula of the L7H-AuytvrmRehouon Glucose study (ADAG), Diabetes Care, Vol.31,#8,Feb. 2007 Blood Venous blood specimen / Unknown 05/13/2025 1:31 PM EDT 05/13/2025 4:05 PM EDT us Chelo Jacobs SAILING INSTRUCTOR LAB BLOOD ORDERABLES Final Resul t [facility] [address] [place] [phone] * (ABNORMAL) Lipid Panel, Standard (05/13/2025 1:31 PM EDT) Triglycerides 167(H) <150 mg/dL [facility] Comment:Desirable Triglyceri de: less than 150 mg/dLBorderline High Triglyceride 150-199 mg/dLHigh Triglyceride: 200-499 mg/dLVery High Triglyceride: greater than or equal to 5OO mg/dL Cholesterol 163 <200 mg/dL [facility] Comment:Desirable Cholestero l: less than 200 mg/dLBorderline High Cholesterol: 200-239 mg/dLHigh Cholesterol: greater than 239 mg/dL LDL Cholesterol Calculated 105(H) <100 mg/dL [facility] Comment:Desirable LDL: less than 100 mg/dLNear Optimal/Above Optimal LDL: 110- 129 mg/dLBorderline High LDL: 130-159 mg/dLHigh LDL: 160-189 mg/dLVery High LDL: greater than or equal to 190 mg/dL HDL Cholesterol 25(L) >40 mg/dL [facility] Comment:Desirable HDL: great er than 40 mg/dL Note: This HDL assay may give artificially low results in patients with liver disease. Blood Venous blood specimen / Unknown 05/13/2025 1:31 PM EDT 05/13/2025 3:50 PM EDT us Chelo Jacobs SAILING INSTRUCTOR LAB BLOOD ORDERABLES Final Resul t [facility] [address] [place] [phone] * (ABNORMAL) Comprehensive Metabolic Panel (05/13/2025 1:31 PM EDT) Sodium 136 135 - 145 mmol/L [facility] Potassium 3.9 3.3 - 5.1 mmol/L [facility] Chloride 105 96 - 108 mmol/L [facility] Carbon Dioxide 23 22 - 29 mmol/L [facility] Anion Gap 12 12 - 20 [facility] Urea Nitrogen (BUN) 14 9 - 16 mg/dL [facility] Creatinine, Serum 0.62 0.5 - 1.4 mg/dL [facility] Estimated Glomerular Filt Rate >60 [facility] Comment:Chronic Kidney Disea se: Estimated GFR < 60 mL/min/1.37a6Nmvzph Kidney Disease: Estimated GFR < 15 mL/min/1.73m2 Glucose 118(H) 60 - 115 mg/dL [facility] Calcium 9.7 8.4 - 10.2 mg/dL [facility] Bilirubin, Total 0.6 0.0 - 1.0 mg/dL [facility] Aspartate Amino Transferase 17 5 - 31 U/L [facility] Alanine Aminotransferase 9 0 - 31 U/L [facility] Total Protein 7.5 6.5 - 8.0 g/dL [facility] Albumin Level 4.7 3.5 - 5.0 g/dL [facility] Alkaline Phosphatase 31(L) 39 - 117 U/L [facility] Blood Venous blood specimen / Unknown 05/13/2025 1:31 PM EDT 05/13/2025 3:50 PM EDT us Chelo Jacobs SAILING INSTRUCTOR LAB BLOOD ORDERABLES Final Resul t Performing Organization Address City/State/[facility] Co [facility] Phone Number [facility] [address] [place] [phone] * US Pelvis Transvaginal (04/15/2025 11:27 AM EDT) Anatomical Region Laterality Modality Pelvis Ultrasound 04/15/2025 11:2 7 AM EDT Narrative 04/15/2025 12:12 PM EDT [address] [address] Ultrasound Report Signed Patient: Mary Driscoll Diamante#: [id number] : 1995 Acct:[id number] Age/Sex: 29 / F ADM Date: 04/15/25 Loc: HO.US Attending Dr: Chelo Jacobs SAILING INSTRUCTOR Ordering Physician: Chelo Jacbos NP Date of Service: 04/15/25 Procedure(s): US pelvic and transvaginal Accession Number(s): [id number] cc: Chelo Jacobs NP Reason for Exam: pt with hx abnormal ultrasound, has not establsihed iwth CHARGER TESTER, repeat us EXAMINATION: US PELVIS TRANSABDOMINAL AND TRANSVAGINAL HISTORY: pt with hx abnormal ultrasound, has not established with CHARGER TESTER, repeat us COMPARISON: Comparison is made with [...] Armani Barton MD 04/15/2025 12:09 PM EDT Dictated By: Armani Barton MD Signed By: <Electronically signed by Armani Barton MD in OV> 04/15/25 1209 DD/ 1127 TD/TT: 04/15/25 1141 Return To Factory Clerk: Procedure Note Donotuseinterpreter, Image - 04/15/2025 [place] [address] Ultrasound Report Signed Patient: Grzegorz Driscoll Diamante#: [id number] : 1995Acct:[id number] Age/Sex: 29 / FADM Date: 04/15/25 Loc: HO.US Attending Dr: Chelo Jacobs NP Ordering Physician: Chelo Jacobs NP Date of Service: 04/15/25 Procedure(s): US pelvic and transvaginal Accession Number(s): [id number] cc: Chelo Jacobs NP Reason for Exam: pt with hx abnormal ultrasound, has not establsihed iwthGYN, repeat us EXAMINATION: US PELVIS TRANSABDOMINAL AND TRANSVAGINAL HISTORY: pt with hx abnormal ultrasound, has not established with CHARGER TESTER, repeat us COMPARISON: Comparison is made with [...] Armani Barton MD 04/15/2025 12:09 PM EDT Dictated By: Armani Barton MD Signed By: <Electronically signed by Armani Barton MD in OV> 04/15/25 1209 DD/ 1127 TD/TT: 04/15/25 1141 Return To Factory Clerk: us Chelo Jacobs NP IMG US PROCEDURES Edited Result - Final * POCT Glucose (03/24/2025 11:27 AM EDT) Glucose Blood, POC 132 60 - 200 mg/dL [employer] Lot # [id number] Lot# Expiration Date Blood Capillary blood specimen / Unknown 03/24/2025 11:27 AM EDT Chelo Jacobs NP POINT OF CARE TEST ENTER/EDIT OR DERABLES Final Result * ThinPrep Imaging Pap with Reflex to HPV mRNA E6/E7 (02/15/2024 12:00 AM EDT) HPV nRNA E6/E7 [facility] SOURCE: Cervix [facility] Report Status: [facility] Clinical Information: NONE GIVEN [facility] LMP: 02/12/24 [facility] Prev. PAP: NONE GIVEN [facility] Prev. BX: NONE GIVEN [facility] Statement Of Adequacy: SEE NOTE [facility] Comment:Satisfactory for wilfrido luation.Endocervical/transformation zone componentpresent. General Categorization: [facility] Interpretation/Result: SEE NOTE [facility] Comment:Cytology Results: Ne gative for intraepitheliallesion or malignancy. Cytology Comment SEE NOTE [facility] Comment:This case could not be evaluated with computerassisted technology. The slide was manuallyscreened according to routine procedures. Fabric Normalizer: SEE NOTE [facility] Comment:ALS, CT(ASCP)CT scre ening location: [place] [address] Review Fabric Normalizer: [facility] Pathologist [facility] PAP Infection [facility] See Note SEE NOTE [facility] Comment:EXPLANATORY NOTE:The Pap is a screening test for cervical cancer. It isnot a diagnostic test and is subject to false negativeand false positive results. It is most reliable when asatisfactory sample, regularly obtained, is submittedwith relevant clinical findings and history, and whenthe Pap result is evaluated along with historic andcurrent clinical information. 02/15/2024 02/15/2024 Narrative [facility] - 03/11/2024 12:05 PM EDT SEE SCANNED RESULTS IN EMR us Chelo Jacobs SAILING INSTRUCTOR LAB PATHOLOGY ORDERABLES Final R esult [facility] [address] [place] [phone] from Last 3 Months or Most Recently Relevant to Health Maintenance Insurance [facility] - HSN PARTIAL (MEDICAID) Care Teams Senior Resident Care Director Relationship Specialty Start Date End Date Chelo Jacobs NP [address] [place] [address] PCP - General Family Medicine 01/17/24
--- OUTSIDE RECORDS SUMMARY | 2025-06-03 16:07 | XMS_ITS | Clinical Summary ---
Author Organization [facility] Address [address] [address] Phone Care Team Providers Care Rn Advanced Name Role Phone ArleneChelo Shira PARKS Primary Care Provider [phone] Allergies No known active allergies Medications cyclobenzaprine [...] Devices Not on file Insurance Care Teams Rn Advanced Relationship Specialty Start Date End Date Chelo Jacobs NP PCP - General Nurse Practitioner 03/27/24 Additional Source Comments The information contained in this document represents components of the legal health record. It is not the complete legal health record.[facility]
--- OUTSIDE RECORDS SUMMARY | 2025-06-03 16:07 | XMS_ITS | Encounter Summary ---
Author Organization [employer] Address [address] [facility] [place] [address] Care Team Providers Care Food Service Clerk Name Role Phone Chelo Jacobs KASEY Primary Care Provider [phone] Reason for Visit * Reason Onset Date Sonja beard recalls 05/29/2025 Encounter Details Date Type Department Care Team (Late st Contact Info) Description 05/29/2025 Telephone [facility] [address] [place] [address] Ivanna Novoa MA jan recalls Social History Tobacco Use Types Packs/Day Years [...] Q2 Not on file 05/26/2025 Comments Unknown Sex and Gender Information Value Date Recorded Sex Assigned at Female 01/31/2023 12:15 PM EDT Legal Sex Female 12:13 PM EDT Gender Identity Female 01/31/2023 12:15 PM EDT Sexual Orientation Straight 01/31/2023 12 :15 PM EDT documented as of this encounter Miscellaneous Notes * Telephone Encounter - Ivanna Novoa MA - 05/29/2025 3:24 PM EDT Telephone call to patient to schedule the following recall: Visit type: Follow up Appointment notes: itype II DM . Patient agree to appointment on 08/12/25 at 9;30 AM with Arlene. documented in this encounter Plan of Treatment Upcoming Encounters Date Type Department Care Team (Late st Contact Info) Description 06/11/2025 11:00 AM EST Medication Management [facility] [address] [place] [phone] Monika Baird PharmD [address] [place] [phone] 08/12/2025 9:30 AM EST Office Visit [facility] [address] [place] [phone] Chelo Jacobs NP [address] [place] [phone] documented as of this encounter Visit Diagnoses Not on filedocumented in this encounter Additional Health Concerns Assessment Noted Time PHQ-9 Depression Total Score: 15 025 1:51 PM EDT documented as of this encounter Care Teams Food Service Clerk Relationship Specialty Start Date End Date Chelo Jacobs NP [address] [place] [phone] PCP - General Family Medicine 01/17/24 documented as of this encounter
--- OUTSIDE RECORDS SUMMARY | 2025-06-03 16:07 | XMS_ITS | Encounter Summary ---
Author Organization [employer] Address [address] [facility] [address] [place] [address] Care Team Providers Care Curb Setter Name Role Phone Chelo Jacobs NP Primary Care Provider [phone] Reason for Visit * Reason Onset Date Comments Med Refill 04/01/2025 Encounter Details Date Type Department Care Team ([facility] st Contact Info) Description 04/01/2025 Refill [facility] [address] [place], [place] [phone] Chelo Jacobs NP [address] [place], [place] [phone] Type 2 diabetes mellitus with hyperglycemia, unspecified whether longitudinal float operator insulin use ([facility]) Social History Tobacco Use Types Packs/Day Years [...] Description 06/11/2025 11:00 AM EST Medication Management [address] [address] Monika Baird, PharmD [address] [place] [phone] 08/12/2025 9:30 AM EST Office Visit [address] [address] Chelo Jacobs NP [address] [place] [phone] documented as of this encounter Visit Diagnoses Diagnosis Type 2 diabetes mellitus with hyperglycemia, unspecified whether jail insulin use ([facility]) documented in this encounter Additional Health Concerns Assessment Noted Time PHQ-9 Depression Total Score: 15 025 1:51 PM EDT documented as of this encounter Care Teams Curb Setter Relationship Specialty Start Date End Date Chelo Jacobs NP [address] [place] [phone] PCP - General Family Medicine 01/17/24 documented as of this encounter
[2025-06-03 17:31] LABS: CT PCR Urine NOT DETECTED (Not Detect.); NG PCR Urine NOT DETECTED (Not Detect.)
[2025-06-04 08:37] LABS: HIV Num 1 0.07 S/CO (0.00-0.99); ~HepC Num1 0.26 S/CO (0.00-0.79); ~Hepatitis C Antibody Nonreactive (Nonreactive)
== END 2025-06-03 13:18 | disposition home or self-care (01) ==
LOC: HO.HHCLNP 13:17
PROVIDERS: PCP Nurse Practitioner Family; Visit Provider Nurse Practitioner Family
DX: Z00.00 Encounter for general adult medical examination without abnormal findings (principal); Z11.59 Encounter for screening for other viral diseases; Z11.4 Encounter for screening for human immunodeficiency virus [HIV]; M54.50 Low back pain, unspecified; M54.6 Pain in thoracic spine; G89.29 Other chronic pain; Z20.2 Contact with and (suspected) exposure to infections with a predominantly sexual mode of transmission
CPT/HCPCS: 72072; 72110; 86592; 86803; 87389; 87491; 87591

== ENCOUNTER → 2025-06-03 14:03 | Outpatient (BNV) | payer OTHER, SELFPAY | PROVIDERS: PCP Nurse Practitioner Family; Visit Provider Radiology Diagnostic Radiology | DX: M54.6 Pain in thoracic spine (principal); Z04.3 Encounter for examination and observation following other accident | CPT/HCPCS: 72072; 72110 ==